=== PATIENT | female | born 1985 | race Caucasian/White ===

== ENCOUNTER 2019-06-03 16:24 | Observation (INO) ==
[2019-06-03 17:58] LABS: BASO# 0.05 X1000 (0.0-0.2); BASO% 0.3 % (0.0-0.8); EOS# 0.05 X1000 (0.0-0.7); EOS% 0.3 % (0.0-10.0); HEMATOCRIT 43.8 % (37.0-47.0); HEMOGLOBIN 13.7 g/dL (12.0-16.0); IMM GRAN# 0.08 X1000 (0.0-0.04); IMM GRAN% 0.5 % (0.0-0.5); LYMPH# 2.73 X1000 (1.2-3.4); LYMPH% 16.5 % (20.5-51.1); MCH 24.5 PG (27-31); MCHC 31.3 g/dL (33-37); MCV 78.2 FL (81-99); MONO# 0.96 X1000 (0.11-0.59); MONO% 5.8 % (1.7-9.3); MPV 9.8 FL (7.4-10.4); NEUT% 76.6 % (42.2-75.2); PLT 357 X1000 (130-400); RDW 15.2 % (11.5-14.5); WBC 16.57 X1000 (4.8-10.8)
[2019-06-03 18:02] LABS: INR 0.95; PROTIME 13.1 Seconds (11.0-16.0)
[2019-06-03 18:03] LABS: PTT 32.8 Seconds (22.3-41.8)
[2019-06-03 18:10] LABS: AGAP 15; ALBUMIN 4.3 g/dL (3.5-5.0); ALKALINE PHOSPHATASE 70 U/L (32-104); BUN 8 mg/dL (8-22); CALCIUM 9.5 mg/dL (8.8-10.2); CHLORIDE 100 mmol/L (98-107); CK PROFILE 45 U/L (24-173); COSMO 274; CREATININE 0.7 mg/dL (0.5-0.9); ESTIMATED GFR > 60; GLUCOSE 102 mg/dL (70-104); GOT 21 U/L (10-30); GPT 18 U/L (10-36); POTASSIUM 4.5 mmol/L (3.5-5.1); SODIUM 138 mmol/L (136-145); TCO2 24 mmol/L (25-35); TOTAL PROTEIN 7.7 g/dL (6.3-8.3)
--- NOTE | 2019-06-03 19:16 | EKG Report ---
Test Performed on : 06/03/2019 5:14:16 PM Test Reason : cp Blood Pressure : / mmHG Vent. Rate : 118 BPM Atrial Rate : 118 BPM P-R Int : 122 ms QRS Dur : 082 ms QT Int : 324 ms P-R-T Axes : 034 006 026 degrees QTc Int : 454 ms Sinus tachycardia. Otherwise normal ECG When compared with ECG of 02-NOV-2015 13:09, No significant change was found Confirmed by Reagan Roberts MD ([id number]) on 06/19/2019 7:37:48 AM
--- NOTE | 2019-06-03 19:28 | Diag Imaging Result Doc PS360 ---
EXAM: CHEST-2 VIEWS - 06/03/2019 HISTORY: cp TECHNIQUE: Chest two views COMPARISON: 04/06/2019 FINDINGS: Heart size is normal. The lungs appear clear. There is no pleural effusion or pneumothorax identified. IMPRESSION: No evidence of acute disease. Electronically signed by Anthony Gordon 06/03/2019 7:26 PM
[2019-06-03] MEDS ORDERED: NS 1,000 ML IV ONE ×3 (19:29→23:04)
[2019-06-03] MEDS ORDERED: ZOFRAN IV ONE (19:29)
[2019-06-03] MEDS ORDERED: TYLENOL PO ONE (19:29)
[2019-06-03 20:02] LABS: URINE SOURCE CLEAN CATCH
[2019-06-03 20:04] LABS: BILIRUBIN URINE NEGATIVE (NEGATIVE); BLOOD URINE NEGATIVE (NEGATIVE); COLOR YELLOW; GLUCOSE URINE NEGATIVE (NEGATIVE); KETONE URINE 10 mg/dL (NEGATIVE); LEUKOCYTES URINE NEGATIVE (NEGATIVE); NITRITE URINE NEGATIVE (NEGATIVE); PROTEIN URINE NEGATIVE (NEGATIVE); SP GRAVITY URINE 1.017; TURBIDITY URINE CLEAR (CLEAR); UROBILINOGEN URINE NORMAL (NORMAL)
[2019-06-03 20:05] LABS: UR EPITHELIAL CELLS <10 /HPF (<10); URINE BACTERIA NEGATIVE /HPF; URINE RBC <10 /HPF (<10); URINE WBC <10 /HPF (<10)
[2019-06-03 21:01] LABS: INFLUENZA A NEGATIVE (NEGATIVE); INFLUENZA B NEGATIVE (NEGATIVE)
--- NOTE | 2019-06-03 21:11 | PROVIDER DOCUMENTATION ---
This chart was entered by Selin Atkins Scribe, acting as scribe for Andrew Valdez MD. HPI-Headache - General Chief Complaint: Headache Stated Complaint: CHEST PAIN / HEADACHE Time Seen by Provider: 06/03/19 18:40 Source: patient Allergies/Adverse Reactions: Patient Allergies Allergy/AdvReac Type Severity Reaction Status Date / Time No Known Allergies Allergy Verified 06/03/19 17:05 Home Medications: Home Medication List Medication Instructions Recorded Confirmed Last Taken Type Levonorgestrel-Ethin Estradiol 1 tab PO DAILY 06/03/19 06/03/19 Unknown History [Introvale 0.15-0.03 mg Tablet] - History of Present Illness-Headache Nature of Presenting Problem: 33 yowf c/o throbbing matt, body aches, nausea, fever/chills and left sided cp that has resolved in er. pt sts when cp occurred it was worse when breathing. sym started yest, fever was low grade and was 100. pt deneis sick contacts, pt has hx of pcos, diverticulosis, colitis, and histoplasmosis. no known allergies. denies vomiting, sob and urinary problems. pt has no migraine hx. Quality of Pain: reports: throbbing (matt) Severity: reports: mild Onset/Duration: reports: other (yest) Timing: reports: still present (matt), gone now (cp) Headache Context: reports: nothing Headache History: denies: history of migraines Any recent trauma/injury?: reports: none Headache severity at the maximum: severe Headache Exacerbated by:: reports: light Modifying Factors: improves with: breathing (cp) Associated Symptoms: reports: headache, chest pain (resolved), fever/chills, other (body aches). denies: loss of consciousness, vomiting Similar Symptoms Previously?: No Review of Systems - Adult - REVIEW OF SYSTEMS - ADULT Constitutional: reports: see HPI, chills, fever. denies: fatique, night sweats Eyes: reports: see HPI, other (photophobia). denies: discharge, dry eyes, redness Ears, Nose, Mouth & Throat: reports: no symptoms reported Cardiovascular: reports: see HPI, chest pain (left sided resolved in er). denies: heart murmur, irregular heart rate, palpitations Respiratory: reports: no symptoms reported. denies: pleurisy, shortness of breath, wheezing Gastrointestinal: reports: see HPI, nausea. denies: abdominal pain, frequent heartburn, vomiting Genitourinary: reports: no symptoms reported. denies: dysuria, discharge, frequency Musculoskeletal: reports: see HPI, muscle aches (generalized). denies: frequent leg cramps, muscle weakness, neck pain Integumentary: reports: no symptoms reported Neurological: reports: see HPI, headache/migraines. denies: loss of balance, numbness, syncope Psychiatric: reports: no symptoms reported Endocrine: reports: no symptoms reported Hematologic/Lymphatic: reports: no symptoms reported Allergic/Immunologic: reports: no symptoms reported All Other Systems: Reviewed and Negative Past History - Adult - PAST MEDICAL HISTORY-ADULT Review of Records: reports: Nursing Assessment Review, Medications Reviewed, Social history reviewed & non-contributory. Major Childhood Illnesses: reports: denies history Cardiovascular: reports: denies history Respiratory: reports: denies history Gastrointestinal: reports: colitis, diverticulosis Obstetrical/Gynecological: reports: ovarian cysts (PCOS), other (pcos, histoplasmosis) Genitourinary: reports: denies history Musculoskeletal: reports: denies history Neurological: reports: denies history. denies: headaches/migraines Endocrine/Immune: reports: denies history Other Conditions: reports: denies history - PRIOR SURGERIES/PROCEDURES Surgical/Procedure History: reports: other (D&C/ovarian cyst drainage and removal) - IMMUNIZATION STATUS Childhood Immunizations: See Nurse Assessment Flu Vaccine: See Nurse Assessment - FAMILY HISTORY Family History: reviewed, not pertinent - SOCIAL HISTORY Smoking: non-smoker Substance Use: none/never Physical Exam- Neurological - Physical Exam-Neuro Initial Vital Signs Reviewed: Yes General Appearance: alert, no apparent distress. negative: lethargic, slow to respond, obtunded Eye Exam: bilateral eye: normal inspection, PERRL, EOMI, photophobia HENMT: normocephalic/atraumatic, moist mucous membranes, normal ENT inspection Head Injury: no evidence of injury Neck: non-tender, full range of motion, supple, normal inspection Respiratory: chest non-tender, lungs clear, normal breath sounds Cardiovascular: normal peripheral pulses, regular rate, rhythm Abdominal Exam: normal bowel sounds, non tender, soft Lymphatic: no adenopathy Peripheral Pulses: radial (R): 2+, radial (L): 2+ Extremity: normal range of motion, non-tender, normal inspection legal office administrator Exam: normal hearing, normal speech, PERRL. negative: facial droop, facial paresthesias, facial weakness, gaze palsy Motor/Sensory: no motor deficit, no sensory deficit Neurologic: legal office administrator II-XII nml as tested, grossly normal, no motor/sensory deficits. negative: facial droop, focal weakness, motor weakness, sensory deficit Integumentary: normal color, normal turgor, warm/dry Psych/Mental Status: normal mood/affect, normal thought content, normal thought process, oriented x 3 - Glascow Coma Scale Best Eye Response: (4) open spontaneously Best Verbal Response: (5) oriented Best Motor Response: (6) obeys commands Total Glascow Score: 15 Progress - PLAN OF CARE/RESULTS Progress/Plan/Lab Results: Vital Signs - 8 hr 06/03/19 16:30 06/03/19 17:05 06/03/19 20:19 Temperature 99.0 F 99.5 F Pulse Rate 121 H 119 H 118 H Respiratory Rate 18 17 16 Blood Pressure 157/96 149/94 134/82 O2 Sat by Pulse Oximetry 97 99 100 Laboratory Results - last 24 hr 06/03/19 06/03/19 06/03/19 17:20 17:20 17:20 WBC 16.57 H RBC 5.60 H Hgb 13.7 Hct 43.8 MCV 78.2 L MCH 24.5 L MCHC 31.3 L RDW Std Deviation 15.2 H Plt Count 357 MPV 9.8 Immature Gran % (Auto) 0.5 Neut % (Auto) 76.6 H Lymph % (Auto) 16.[address] [place] % (Auto) 5.8 Eos % (Auto) 0.3 Baso % (Auto) 0.3 Immature Gran # (Auto) 0.08 H Neut # (Auto) 12.70 H Lymph # (Auto) 2.73 [place] # (Auto) 0.96 H Eos # (Auto) 0.05 Baso # (Auto) 0.05 PT INR PTT (Actin FS) Sodium 138 Potassium 4.5 Chloride 100 Carbon Dioxide 24 L Anion Gap 15 BUN 8 Creatinine 0.7 Estimated GFR/1.73 m2 > 60 BUN/Creatinine Ratio 11 Glucose 102 Calculated Osmolality 274 Calcium 9.5 Total Bilirubin 0.30 AST 21 ALT 18 Alkaline Phosphatase 70 Creatine Kinase 45 Troponin T [id number]-Wqydmvyevdb Pept 61 Total Protein 7.7 Albumin 4.3 Globulin 3.0 Albumin/Globulin Ratio 1.0 Urine Source Urine Color Urine Turbidity Urine pH Ur Specific [place] Urine Protein Ur Glucose (Stick) Ur Ketones (Stick) Urine Blood Urine Nitrite Urine Bilirubin Urobilinogen Dipstick Urine Leukocytes Urine WBC (Auto) Urine RBC (Auto) U Epithel Cells (Auto) Urine Bacteria (Auto) Influenza A (Rapid) Influenza B (Rapid) Group A Strep Rapid 06/03/19 06/03/19 06/03/19 17:20 17:20 18:40 WBC RBC Hgb Hct MCV MCH MCHC RDW Std Deviation Plt Count MPV Immature Gran % (Auto) Neut % (Auto) Lymph % (Auto) [facility] % (Auto) Eos % (Auto) Baso % (Auto) Immature Gran # (Auto) Neut # (Auto) Lymph # (Auto) [facility] # (Auto) Eos # (Auto) Baso # (Auto) PT 13.1 INR 0.95 PTT (Actin FS) 32.8 Sodium Potassium Chloride Carbon Dioxide Anion Gap BUN Creatinine Estimated GFR/1.73 m2 BUN/Creatinine Ratio Glucose Calculated Osmolality Calcium Total Bilirubin AST ALT Alkaline Phosphatase Creatine Kinase Troponin T < 0.010 Ewi-Z-Zcyombhuugj Pept Total Protein Albumin Globulin Albumin/Globulin Ratio Urine Source CLEAN CATCH Urine Color YELLOW Urine Turbidity CLEAR Urine pH 6.0 Ur Specific [place] 1.017 Urine Protein NEGATIVE Ur Glucose (Stick) NEGATIVE Ur Ketones (Stick) 10 A Urine Blood NEGATIVE Urine Nitrite NEGATIVE Urine Bilirubin NEGATIVE Urobilinogen Dipstick NORMAL Urine Leukocytes NEGATIVE Urine WBC (Auto) <10 Urine RBC (Auto) <10 U Epithel Cells (Auto) <10 Urine Bacteria (Auto) NEGATIVE Influenza A (Rapid) Influenza B (Rapid) Group A Strep Rapid 06/03/19 06/03/19 20:17 20:17 WBC RBC Hgb Hct MCV MCH MCHC RDW Std Deviation Plt Count MPV Immature Gran % (Auto) Neut % (Auto) Lymph % (Auto) [facility] % (Auto) Eos % (Auto) Baso % (Auto) Immature Gran # (Auto) Neut # (Auto) Lymph # (Auto) [facility] [place] # (Auto) Eos # (Auto) Baso # (Auto) PT INR PTT (Actin FS) Sodium Potassium Chloride Carbon Dioxide Anion Gap BUN Creatinine Estimated GFR/1.73 m2 BUN/Creatinine Ratio Glucose Calculated Osmolality Calcium Total Bilirubin AST ALT Alkaline Phosphatase Creatine Kinase Troponin T Zrp-A-Uzkryuptgwo Pept Total Protein Albumin Globulin Albumin/Globulin Ratio Urine Source Urine Color Urine Turbidity Urine pH Ur Specific [place] Urine Protein Ur Glucose (Stick) Ur Ketones (Stick) Urine Blood Urine Nitrite Urine Bilirubin Urobilinogen Dipstick Urine Leukocytes Urine WBC (Auto) Urine RBC (Auto) U Epithel Cells (Auto) Urine Bacteria (Auto) Influenza A (Rapid) NEGATIVE Influenza B (Rapid) NEGATIVE Group A Strep Rapid NEGATIVE Orders Category Date Time Status Cardiac Monitoring DIRECTED Care 06/03/19 17:37 Active If abnormal EKG, order: NOW Care 06/03/19 16:57 Active Saline Loc NOW Care 06/03/19 17:37 Active CHEST-2 VIEWS [RAD] Stat Exams 06/03/19 16:[address] HEAD W/O CONTRAST [CT] Stat Exams 06/03/19 Completed BLOOD CULTURE [BLDCUL] Stat Lab 06/03/19 23:00 Ordered CBC WITH ELECTRONIC DIFF [HEME] Stat Lab 06/03/19 17:20 Completed CK PROFILE [SP CHEM] Stat Lab 06/03/19 17:20 Completed COMPREHENSIVE METABOLIC PANEL [CHEM] Stat Lab 06/03/19 17:[address] Stat Lab 06/03/19 20:[address] Stat Lab 06/03/19 20:17 Completed PRO B-NATRIURETIC PEPTIDE Stat Lab 06/03/19 17:20 Completed PROTIME WITH INR [COAG] Stat Lab 06/03/19 17:20 Completed PTT [COAG] Stat Lab 06/03/19 17:20 Completed TROPONIN T Stat Lab 06/03/19 17:20 Completed UA [URINALYSIS W/POSS RFLX CULT] [URINALYSIS] Stat Lab 06/03/19 18:40 Com pleted 0.9% Sodium Chloride Inj [Ns] 1,000 ml Med 06/03/19 19:29 Discontinued IV 999 mls/hr 0.9% Sodium Chloride Inj [Ns] 1,000 ml Med 06/03/19 21:11 Discontinued IV 999 mls/hr Acetaminophen [Tylenol] Med 06/03/19 19:29 Discontinued 1,000 mg PO NOW ONE Ketorolac [Toradol] Med 06/03/19 21:40 Discontinued 15 mg IV NOW ONE Ondansetron [Zofran] Med 06/03/19 19:29 Discontinued 4 mg IV NOW ONE CP/Palp <45 No Known Cardiac Hx Stat Oth 06/03/19 16:57 Ordered CP/SOB/Palp >45 yrs of Age Stat Oth 06/03/19 17:37 Ordered EKG [EKG] Stat Ther 06/03/19 16:57 Draft At recheck, pt noted that she was feeling some better but still had a headache. Pt refused a LP in the ER at this time. Risks vs benefits discussed with pt. Result Diagrams: 06/03/19 17:20 06/03/19 17:20 - EKG 1 Time of EKG reading by physician:: 17:14 EKG Read and Signed by:: Alex Kendall EKG Interpretation (*Must complete 3 of following elements*): Normal Rate: 118 Rhythm: ST [place]: normal QRS: normal MN Interval: normal ST Wave: normal - XRAY 1 XRAY Study: Chest Impression: Normal, See EMR Report (EXAM: CHEST-2 VIEWS - 06/03/2019 HISTORY: cp TECHNIQUE: Chest two views COMPARISON: 04/06/2019 FINDINGS: Heart size is normal. The lungs appear clear. There is no pleural effusion or pneumothorax identified. IMPRESSION: No evidence of acute disease. Electronically signed by [employer] 06/03/2019 7:26 PM) - CT/MRI 1 CT Study: Head Impression: Normal, See EMR Report ( EXAM: CT HEAD W/O CONTRAST - 06/03/2019 HISTORY: severe headache TECHNIQUE: CT head without contrast COMPARISON: None. FINDINGS: There are artifacts from motion which mildly limit detail. There is no evidence of intracranial hemorrhage, mass effect, midline shift, or hydrocephalus. There is slight ventricular asymmetry compatible with normal variation. There is no evidence of infarct, although acute infarcts may not be immediately visible. There is no evidence of skull fracture. Visualized portions of paranasal sinuses and mastoid air cells appear clear. IMPRESSION: No visible acute intracranial abnormality. No hemorrhage or mass effect. This exam was performed using automated exposure control, adjustment of mA or kV ac cording to patient size, and/or use of iterative reconstruction technique. Electronically signed by [employer] 06/03/2019 9:23 PM) Comparison with other Films: no prior study - CONSULTS/PCP/HOSPITALIST Notification #1 *Consult/PCP/Hospitalist*: Dr. Marcano Time Discussed: 23:00 Consult Disposition: Admit Departure - Departure Date of Disposition Decision: 06/03/19 Time of Disposition Decision: 23:01 DIAGNOSIS: Dehydration, Headache, Viral syndrome Disposition: ADMITTED INPATIENT 09 Certified Medical Emergency: Emergent Condition: Fair Referrals and Follow-Ups: None,PCP [Primary Care Provider] - Discharge Education: Migraine Headache, [id number] - Critical Care Note This patient required my direct & personal management of CC.: No Attestation - Physician/ AYESHA Attestation Patient care was provided by Advanced Practice Provider:: No The physician spent face to face time with patient:: Yes Advanced Practice Provider documentation review:: Supervising physician onsite and consulted in the evaluation and care of this patient. The physician did have a face to face encounter with the patient. This chart was documented by the indicated scribe, (Selin Atkins Scribe) and accurately reflects the services I performed and decisions made by me, Andrew Valdez MD, as attested by the provider's signature.
--- NOTE | 2019-06-03 21:26 | Diag Imaging Result Doc PS360 ---
EXAM: CT HEAD W/O CONTRAST - 06/03/2019 HISTORY: severe headache TECHNIQUE: CT head without contrast COMPARISON: None. FINDINGS: There are artifacts from motion which mildly limit detail. There is no evidence of intracranial hemorrhage, mass effect, midline shift, or hydrocephalus. There is slight ventricular asymmetry compatible with normal variation. There is no evidence of infarct, although acute infarcts may not be immediately visible. There is no evidence of skull fracture. Visualized portions of paranasal sinuses and mastoid air cells appear clear. IMPRESSION: No visible acute intracranial abnormality. No hemorrhage or mass effect. This exam was performed using automated exposure control, adjustment of mA or kV according to patient size, and/or use of iterative reconstruction technique. Electronically signed by Anthony Gordon 06/03/2019 9:23 PM
[2019-06-03] MEDS ORDERED: TORADOL IV ONE (21:40)
[2019-06-03] MEDS ORDERED: TYLENOL PO PRN (23:02)
[2019-06-03] MEDS ORDERED: DILAUDID IV PRN (23:07)
[2019-06-04] MEDS: ZOFRAN IV PRN ×3 (02:04→14:24)
[2019-06-04 07:42] LABS: AGAP 15; CHLORIDE 105 mmol/L (98-107); GLUCOSE 106 mg/dL (70-104); POTASSIUM 4.1 mmol/L (3.5-5.1); SODIUM 138 mmol/L (136-145); TCO2 18 mmol/L (25-35)
[2019-06-04 07:43] LABS: ALBUMIN 3.2 g/dL (3.5-5.0); ALKALINE PHOSPHATASE 54 U/L (32-104); BUN 8 mg/dL (8-22); CALCIUM 8.4 mg/dL (8.8-10.2); COSMO 274; CREATININE 0.6 mg/dL (0.5-0.9); GOT 18 U/L (10-30); GPT 13 U/L (10-36); TOTAL PROTEIN 6.6 g/dL (6.3-8.3)
[2019-06-04 08:46] LABS: BASO# 0.06 X1000 (0.0-0.2); BASO% 0.5 % (0.0-0.8); EOS% 0.8 % (0.0-10.0); HEMATOCRIT 40.9 % (37.0-47.0); HEMOGLOBIN 12.4 g/dL (12.0-16.0); IMM GRAN# 0.08 X1000 (0.0-0.04); IMM GRAN% 0.7 % (0.0-0.5); LYMPH# 2.75 X1000 (1.2-3.4); LYMPH% 22.4 % (20.5-51.1); MCH 24.6 PG (27-31); MCHC 30.3 g/dL (33-37); MONO# 0.98 X1000 (0.11-0.59); MPV 10.4 FL (7.4-10.4); NEUT# 8.29 X1000 (1.4-6.5); NEUT% 67.6 % (42.2-75.2); PLT 224 X1000 (130-400); RBC 5.05 XMIL (4.2-5.4); RDW 15.6 % (11.5-14.5); WBC 12.26 X1000 (4.8-10.8)
[2019-06-04] MEDS: LOVENOX SUBQ SCH (08:53)
[2019-06-04] MEDS: PATIENT'S OWN MED PO SCH (08:54)
[2019-06-04] MEDS: NS 1,000 ML IV SCH ×2 (08:57→18:07)
[2019-06-04] MEDS: FIORICET PO PRN ×3 (09:03→18:28)
[2019-06-04] MEDS ORDERED: MOTRIN PO PRN (10:15)
[2019-06-04] MEDS ORDERED: PROTONIX PO ONE (10:18)
[2019-06-04] MEDS: CULTURELLE PO SCH ×2 (11:10→20:40)
[2019-06-04] MEDS: PERICOLACE PO SCH ×2 (11:12→20:40)
--- NOTE | 2019-06-04 11:16 | Diag Imaging Result Doc PS360 ---
EXAM: US PELVIC NON-OB COMPLETE - 06/04/2019 HISTORY: pelvic pain; pcos; fever TECHNIQUE: Ultrasound pelvis. Exam performed using transabdominal probe. COMPARISON: None. FINDINGS: The uterus measures 13.3 x 7.9 x 6.2 cm in size. The uterus appears nongravid, with dual layer endometrial thickness of 1 cm. There is no uterine lesion identified. The bilateral ovaries demonstrate blood flow signal on Doppler images. There is no adnexal mass identified. There is no free fluid identified. IMPRESSION: No visible abnormality. Electronically signed by Anthony Gordon 06/04/2019 11:14 AM
--- NOTE | 2019-06-04 19:04 | HISTORY AND PHYSICAL ---
PRIMARY CARE PROVIDER: Used to be Dr. Wright, now she does not have one, and she also used to use [facility] for Rheumatology for arthritis. CHIEF COMPLAINT: Headache. HISTORY OF PRESENT ILLNESS: Ms. Katelynn Lauren is a 33-year-old, morbidly obese, female, with a medical history of PCOS, diverticulosis, colitis, histoplasmosis, chronic elevation in her white blood cell count, GERD, chronic constipation, who is now here with complaints of what she states started on Saturday, which is 2 days ago. She had a generalized headache, but then it became worsened throughout the day to the point it was pulsing and causing blurred vision. She presented to the [facility] yesterday around 3 p.m., was admitted around 2:[address] was negative. Her headache is starting to ease up, but also noted is the white count being 16,000. She claims she is normally around 12,000, due to her chronic elevation in white blood cell count, but she also has fever with it. She has not had any sick contacts. She has not been having any issues with urination. There are no issues with coughing up any colors. No shortness of breath, but she continues to have the fever. She does have a history of PCOS. She had a pelvic ultrasound which did not show anything alarming. Her uncle actually was in the room at the bedside, which had also performed an acupuncture on her left hand, and she is starting to feel a little better. She still has the fevers. PAST MEDICAL HISTORY: 1. PCOS. 2. Diverticulosis. 3. Colitis. 4. Histoplasmosis. 5. Used to have some arthritis problems. 6. Chronic leukocytosis. She states she is on average around 12,000. 7. Chronic constipation. 8. GERD. SURGICAL HISTORY: 1. D C with ovarian cyst removed. 2. Two exploratory laparoscopic procedures for possible endometriosis. SOCIAL HISTORY: Denies tobacco, alcohol, or illicit drug use. Lives with her boyfriend, has no kids. She does office work for a living. FAMILY HISTORY: Mother had brain cancer. Father had a car wreck at a young age and . ALLERGIES: No known drug allergies. HOME MEDICATIONS: She takes control, 3-month supplies at a time. She states she also takes probiotics. REVIEW OF SYSTEMS: A 14-point review of systems is complete and all were negative those mentioned above in the HPI, but she did have some nausea. No vomiting. Denied any bleeding. She has also had some tenderness in the bilateral lower quadrants of her abdomen. PHYSICAL EXAMINATION: VITAL SIGNS: Temperature 99.2 degrees, heart rate 100, respiratory rate is 18, blood pressure 160/86, O2 saturation 98% on room air. GENERAL: Ms. Katelynn Lauren is a 33-year-old, female. She is in no acute distress. She is able to answer questions appropriately. HEENT: Atraumatic, normocephalic. Pupils equal, round, reactive to light. Extraocular movements intact. Mucous membranes moist. NECK: Trachea midline. CARDIOVASCULAR: S1, S2. Regular rate and rhythm. No rubs, gallops, murmurs. No lower extremity edema. Dorsalis and radial pulses +2. Negative JVD or carotid bruits. PULMONARY: Clear to auscultation. Bilateral breath sounds. No accessory muscle use or work of breathing noted. GASTROINTESTINAL: Soft, nontender, nondistended. Positive bowel sounds x4. EXTREMITIES: Moves all extremities equally. Full range of motion. NEUROLOGIC: A O x3. Follows commands. Sensory is intact. SKIN: Warm, dry, intact. LABORATORY DATA: White blood cells 12,000, down from 16,000. Hemoglobin 12, hematocrit 40, platelet count 224,000. Sodium 138, potassium 4.1, BUN 8, creatinine 0.6, glucose 106, calcium 8.4. Bilirubin is 0.50, AST 18, ALT 13, albumin 3.2. Urinalysis, 10 ketones, otherwise negative. Influenza negative. Strep negative. Blood cultures ordered. IMAGING: Head CT: Negative. Chest x-ray: Negative. Pelvic ultrasound: Negative. EKG: Sinus tachycardia, rate 118. ASSESSMENT/PLAN: 1. Fever of unknown origin. Could be viral, could be bacterial, but there is really no obvious source at this time. She has not been placed on any antibiotics and her white blood cell count is already dropping after receiving IV fluid hydration. She claims that she has chronic leukocytosis and runs around 12,000, and she is already at 12,000. She has p.r.n. ibuprofen and Tylenol for fever. 2. Leukocytosis. Please see #1. Cultures have been ordered. 3. Migraine headache. Originally, she had been ordered Dilaudid which she states she took around 2:00 this morning and that was the last time, but she prefers to have Tylenol. Then, she took Fioricet that was ordered for her this morning and she states her headache significantly decreased, is not completely gone. She still feels a little pressure behind the eyes. Her uncle did acupuncture on her left hand. 4. Polycystic ovary syndrome. Pelvic ultrasound is okay, nothing acute. 5. Chronic constipation with gastroesophageal reflux disease. We did Culturelle, Protonix, Denise- Colace, and Zofran for nausea. 6. Morbid obesity. 7. Deep venous thrombosis prophylaxis. Lovenox. Dictated by JOVANA Almeida for Andrew Fu MD Addendum: Patient seen and examined by myself. Agree with JOVANA note. It reflects my assessment and plan. Patient is being admitted to hospital for fever of unknown origin. She has leukocytosis and migraine headache. CT of head is ok so will monitor patient closely. cc: JOVANA Almeida MD [facility]
[2019-06-04] MEDS ORDERED: AMBIEN PO SCH (21:00)
[2019-06-05] MEDS: FIORICET PO PRN ×3 (02:09→10:35)
[2019-06-05] MEDS: NS 1,000 ML IV SCH (02:10)
[2019-06-05 06:21] LABS: AGAP 9; ALBUMIN 3.2 g/dL (3.5-5.0); ALKALINE PHOSPHATASE 47 U/L (32-104); BUN 4 mg/dL (8-22); CALCIUM 8.2 mg/dL (8.8-10.2); CHLORIDE 105 mmol/L (98-107); COSMO 270; CREATININE 0.6 mg/dL (0.5-0.9); ESTIMATED GFR > 60; GLUCOSE 117 mg/dL (70-104); GOT 16 U/L (10-30); GPT 13 U/L (10-36); MAGNESIUM 1.6 mg/dL (1.5-2.7); POTASSIUM 3.6 mmol/L (3.5-5.1); SODIUM 136 mmol/L (136-145); TCO2 22 mmol/L (25-35)
[2019-06-05 06:27] LABS: BASO# 0.05 X1000 (0.0-0.2); BASO% 0.4 % (0.0-0.8); EOS# 0.04 X1000 (0.0-0.7); EOS% 0.4 % (0.0-10.0); HEMATOCRIT 36.6 % (37.0-47.0); HEMOGLOBIN 11.1 g/dL (12.0-16.0); IMM GRAN# 0.05 X1000 (0.0-0.04); IMM GRAN% 0.4 % (0.0-0.5); LYMPH# 2.59 X1000 (1.2-3.4); MCH 24.1 PG (27-31); MCHC 30.3 g/dL (33-37); MCV 79.6 FL (81-99); MONO# 0.89 X1000 (0.11-0.59); MONO% 7.9 % (1.7-9.3); MPV 9.7 FL (7.4-10.4); NEUT# 7.64 X1000 (1.4-6.5); NEUT% 67.9 % (42.2-75.2); PLT 303 X1000 (130-400); WBC 11.26 X1000 (4.8-10.8)
[2019-06-05] MEDS ORDERED: PROTONIX PO SCH (07:00)
[2019-06-05 07:31] VITALS: BP 144/88
[2019-06-05] MEDS: CULTURELLE PO SCH (10:14)
[2019-06-05] MEDS: PATIENT'S OWN MED PO SCH (10:15)
[2019-06-05] MEDS: PERICOLACE PO SCH (10:16)
[2019-06-05] MEDS: LOVENOX SUBQ SCH (10:16)
[2019-06-05] MEDS ORDERED: MOTRIN PO PRN (10:33)
--- NOTE | 2019-06-06 15:00 | DISCHARGE SUMMARY ---
ADMISSION DATE: 06/03/2019 DISCHARGE DATE: 06/05/2019 ADDENDUM: PHYSICIAN FOLLOWUPS: Dr. Manoj Montero in 1 week if she continues to have fevers, and she can also see him for the chronic elevation of white blood cell count. DISCHARGE INSTRUCTIONS: If her condition changes, contact physician and/or return to the emergency department. Changes may include, but not limited to shortness of breath, increased fatigue, excessive bleeding, unexplained weight loss or gain, unmanageable pain, signs or symptoms of infection. Call Saturday to make an appointment. Follow up with Dr. Montero in 1 week. Resume home medications and take all medications as prescribed. Come to the emergency department if your symptoms do not improve or become worse. Call the office of your primary care provider for any questions or concerns. Dictated by JOVANA Almeida for Andrew Fu MD cc: JOVANA Almeida MD
--- NOTE | 2019-06-06 15:04 | DISCHARGE SUMMARY ---
ADMISSION DATE: 06/03/2019 DISCHARGE DATE: 06/05/2019 ADMISSION AND DISCHARGE DIAGNOSES: 1. Fever of unknown origin, most likely viral. 2. Leukocytosis. 3. Migraine headache. 4. Polycystic ovarian syndrome. 5. Chronic constipation with gastroesophageal reflux disease. 6. Morbid obesity. CONSULTATIONS: None. HOSPITAL COURSE: Ms. Katelynn Lauren presented to [facility], 33 years old, previous history of PCOS, diverticulosis, colitis, histoplasmosis, chronic elevation in white count, who came in with complaints of 2 days of headache. She also had complaints of nausea. Apparently, the headache was generalized but then became worsened throughout the day to the point she felt her head pulsating and her vision was blurred. Head CT was negative. White count was found to be 12,000, but she states she runs around 12,000 on her white count that is chronically elevated. However, this time she has fever with it. She has not had any sick contacts and workup did not reveal any source of infection. Given the history of PCOS, that was also evaluated with an ultrasound which did not show any acute findings. Fever finally resolved after IV fluid hydration. She was never started on antibiotics. She was given Fioricet for her headaches, which helped. She will be discharged home. DISCHARGE VITAL SIGNS: Temperature 98.6 degrees, heart rate 97, respiratory rate 16, blood pressure 144/88, O2 saturation 100% on room air. DISCHARGE LAB DATA: White blood cells 11,000, hemoglobin 11, hematocrit 36, platelet count 303,000. Sodium 136, potassium 3.6, BUN 4, creatinine 0.6, glucose 117, calcium 8.2, magnesium 1.6, bilirubin 0.40, AST 16, ALT 13, albumin 3.2. Urinalysis negative. Flu negative. Strep negative. Blood cultures prelim negative. IMAGING: Head CT, no acute findings. Chest x-ray, no acute findings. Pelvic ultrasound, no visible abnormality. EKG, sinus tachycardia rate 118. DISCHARGE MEDICATIONS: 1. Introvale 1 tab by mouth daily, 3 months supply. 2. Fioricet 1 tablet p.o. every 4 hours p.r.n. 3. Ibuprofen 600 mg p.o. q.6 hours p.r.n. DISCHARGE ACTIVITY: As tolerated. Discharge home. DISCHARGE DIET: Regular. DISCHARGE FOLLOW-UP: See [place] Dictated by JOVANA Almeida for Andrew Fu MD Addendum: Patient seen and examined by myself. Agree with JOVANA note. It reflects my assessment and plan. Patient is being discharged in stable condition. Follow up with Dr. Manoj Montero in a week. cc: JOVANA Almeida MD [facility]
== END 2019-06-05 11:50 | disposition home or self-care (01) ==
LOC: P.ED 16:24 → P.MEDSURG 23:51 → INTOOBSV 23:51 → P.MEDSURG 06-04 00:31
PROVIDERS: ATTEND Internal Medicine